=== PATIENT | male | born 1960 | race Caucasian/White ===

== ENCOUNTER → 2019-04-26 | Outpatient (CLI) | payer BC ==
[~2019-04-26] MED LIST: MOTRIN800 MG PO
[2019-04-26 07:53] LABS: HEMATOCRIT 44.7 % (42.0-52.0); HEMOGLOBIN 15.1 g/dl (14.0-18.0); MEAN CELL VOLUME 91.6 fl (80.0-94.0); MEAN CORPUSCULAR HGB 30.9 pg (27.0-31.0); MEAN CORPUSCULAR HGB CONC 33.8 g/dl (33.0-37.0); MEAN PLATELET VOLUME 9.1 fl (9.6-12.3); RED BLOOD COUNT 4.88 10*6/uL (4.50-5.90); RED CELL DISTRI WIDTH 12.9 % (0-14.5)
[2019-04-26 08:14] LABS: ALBUMIN 3.4 gm/dl (3.1-4.5); ALKALINE PHOSPHATASE 91 U/L (45-117); BUN 17 mg/dl (7-24); CHLORIDE 107 mmol/L (98-107); CHOLESTEROL 231 mg/dL (<200); CREATININE 0.96 mg/dL (0.70-1.30); HDL CHOLESTEROL 33 mg/dl (40-60); LDL CHOLESTEROL 118 mg/dL (9-159); POTASSIUM 4.1 mmol/L (3.5-5.1); SGOT/AST 20 IU/L (3-35); SGPT/ALT 44 U/L (12-78); SODIUM 142 mmol/L (136-145); TOTAL PROTEIN 7.3 gm/dL (6.4-8.2); TRIGLYCERIDES 398 mg/dl (<150); VLDL CHOLESTEROL 80 mg/dL (6-40)
== END | disposition home or self-care (01) ==
LOC: LAB 07:03
PROVIDERS: Family Medicine
DX: Z12.5 Encounter for screening for malignant neoplasm of prostate (principal); I25.10 Atherosclerotic heart disease of native coronary artery without angina pectoris; E55.9 Vitamin D deficiency, unspecified; E78.00 Pure hypercholesterolemia, unspecified; E74.00 Glycogen storage disease, unspecified

== ENCOUNTER → 2020-04-16 | Outpatient (CLI) | payer BC ==
[2020-04-16 07:29] LABS: MEAN CELL VOLUME 90.2 fl (80.0-94.0); MEAN CORPUSCULAR HGB 29.7 pg (27.0-31.0); MEAN CORPUSCULAR HGB CONC 32.9 g/dl (33.0-37.0); MEAN PLATELET VOLUME 8.9 fl (9.6-12.3); RED BLOOD COUNT 4.99 10*6/uL (4.50-5.90); RED CELL DISTRI WIDTH 13.1 % (0-14.5); WHITE BLOOD COUNT 7.3 10*3/uL (4.8-10.8)
[2020-04-16 07:49] LABS: CHLORIDE 106 mmol/L (98-107); SODIUM 139 mmol/L (136-145)
[2020-04-16 08:04] LABS: ALBUMIN 3.4 gm/dl (3.1-4.5); ALKALINE PHOSPHATASE 102 U/L (45-117); BUN 14 mg/dl (7-24); CHOLESTEROL 238 mg/dL (<200); CREATININE 0.95 mg/dL (0.70-1.30); HDL CHOLESTEROL 38 mg/dl (40-60); LDL CHOLESTEROL 146 mg/dL (9-159); SGOT/AST 21 IU/L (3-35); SGPT/ALT 45 U/L (12-78); TOTAL PROTEIN 7.3 gm/dL (6.4-8.2); TRIGLYCERIDES 271 mg/dl (<150); VLDL CHOLESTEROL 54 mg/dL (6-40)
[2020-04-18 19:07] LABS: TESTOSTERONE FREE, (DIRECT) 11.6 pg/mL (6.6-18.1)
== END | disposition home or self-care (01) ==
LOC: LAB 07:11
PROVIDERS: ATTEND Family Medicine
DX: Z12.5 Encounter for screening for malignant neoplasm of prostate (principal); E78.00 Pure hypercholesterolemia, unspecified; E74.9 Disorder of carbohydrate metabolism, unspecified; N52.9 Male erectile dysfunction, unspecified; R68.82 Decreased libido

== ENCOUNTER → 2021-01-28 | Outpatient (CLI) | payer BC ==
[2021-01-28 07:41] LABS: ALBUMIN 3.2 gm/dl (3.1-4.5); ALKALINE PHOSPHATASE 106 U/L (45-117); BUN 12 mg/dl (7-24); CHLORIDE 108 mmol/L (98-107); CHOLESTEROL 217 mg/dL (<200); CREATININE 0.81 mg/dL (0.70-1.30); POTASSIUM 3.8 mmol/L (3.5-5.1); SGOT/AST 20 IU/L (3-35); SGPT/ALT 45 U/L (12-78); SODIUM 140 mmol/L (136-145); TOTAL PROTEIN 7.1 gm/dL (6.4-8.2); TRIGLYCERIDES 298 mg/dl (<150)
[2021-01-28 07:42] LABS: LDL CHOLESTEROL 122 mg/dL (9-159)
== END | disposition home or self-care (01) ==
LOC: LAB 07:10
PROVIDERS: ATTEND Family Medicine
DX: E78.00 Pure hypercholesterolemia, unspecified (principal); E74.9 Disorder of carbohydrate metabolism, unspecified; F41.1 Generalized anxiety disorder

== ENCOUNTER → 2022-02-11 | Outpatient (CLI) | payer BC ==
[~2022-02-11] MED LIST changes: +ATORVASTATIN CA40 M1 PO; +BUSPAR15 MG PO; +DULOXETINE HCL60 MG PO; +ELIQUIS5 M1 PO
[2022-02-11 14:16] LABS: BILIRUBIN Negative (Negative); BLOOD Negative (Negative); CLARITY Clear (Clear); COLOR Yellow (Yellow); GLUCOSE Negative (Negative); KETONE Trace (Negative); LEUKO ESTERASE Negative (Negative); NITRITE Negative (Negative); UROBILINOGEN 0.2 E.U./dl (0.0-1.0)
[2022-02-11 14:24] LABS: BACTERIA 1+
[2022-02-11 14:25] LABS: HYALINE CAST 0-2
== END ==
LOC: LAB 13:38
PROVIDERS: ATTEND Internal Medicine
DX: M16.12 Unilateral primary osteoarthritis, left hip (principal); M17.12 Unilateral primary osteoarthritis, left knee; R82.998 Other abnormal findings in urine; Z13.0 Encounter for screening for diseases of the blood and blood-forming organs and certain disorders involving the immune mechanism; Z13.1 Encounter for screening for diabetes mellitus; Z13.21 Encounter for screening for nutritional disorder; Z13.220 Encounter for screening for lipoid disorders; Z13.228 Encounter for screening for other metabolic disorders; Z13.29 Encounter for screening for other suspected endocrine disorder; Z13.6 Encounter for screening for cardiovascular disorders; Z13.89 Encounter for screening for other disorder; Z13.9 Encounter for screening, unspecified

== ENCOUNTER → 2022-04-26 | Outpatient (CLI) | payer BC | END | disposition home or self-care (01) | LOC: US 03-24 14:00 | PROVIDERS: ATTEND Internal Medicine | DX: R60.0 Localized edema (principal); R20.0 Anesthesia of skin ==

== ENCOUNTER → 2022-05-16 | Outpatient (CLI) | payer BC ==
[2022-05-16 14:39] LABS: BASO # 0.1 10*3/uL (0.0-0.1); BASO % 1.2 % (0.0-1.0); EOS # 0.4 10*3/uL (0.0-0.4); HEMATOCRIT 47.4 % (42.0-52.0); LYMPH # 2.4 10*3/uL (1.3-4.4); LYMPH % 27.2 % (27.0-41.0); MEAN CELL VOLUME 88.1 fl (80.0-94.0); MEAN CORPUSCULAR HGB 30.1 pg (27.0-31.0); MEAN CORPUSCULAR HGB CONC 34.2 g/dl (33.0-37.0); MEAN PLATELET VOLUME 8.9 fl (9.6-12.3); MONO # 0.8 10*3/uL (0.1-1.0); MONO % 8.5 % (3.0-9.0); NEUT # 5.2 10*3/uL (2.3-7.9); NEUT % 58.4 % (47.0-73.0); PLATELET COUNT AUTOMATED 310 10*3/uL (130-400); RED BLOOD COUNT 5.38 10*6/uL (4.50-5.90); RED CELL DISTRI WIDTH 13.2 % (0-14.5); WHITE BLOOD COUNT 8.8 10*3/uL (4.8-10.8)
[2022-05-16 15:02] LABS: ALKALINE PHOSPHATASE 95 U/L (46-116); BUN 9 mg/dl (9-23); CHLORIDE 105 mmol/L (98-107); CHOLESTEROL 217 mg/dL (<200); LDL CHOLESTEROL 103 mg/dL (9-159); SGPT/ALT 33 U/L (10-49); T3 UPTAKE 17.6 % (22.4-36.7); THYROID STIM HORMONE (HS) 2.593 uIU/ml (0.550-4.780); THYROXINE (T4) TOTAL 8.4 ug/dl (4.5-10.9); TOTAL PROTEIN 7.4 gm/dL (6.0-8.0); TRIGLYCERIDES 374 mg/dl (<150)
== END | disposition home or self-care (01) ==
LOC: LAB 14:02
PROVIDERS: ATTEND Psychiatry & Neurology Neurology
DX: I63.413 Cerebral infarction due to embolism of bilateral middle cerebral arteries (principal)

== ENCOUNTER → 2023-02-24 | Outpatient (CLI) | payer BC | END | disposition home or self-care (01) | LOC: LAB 09:13 | PROVIDERS: ATTEND Internal Medicine | DX: E11.9 Type 2 diabetes mellitus without complications (principal) ==

== ENCOUNTER → 2023-06-22 | Outpatient (CLI) | payer BC ==
[~2023-06-22] MED LIST changes: +CBD GUMMIES PO; +CHONDROITIN SU100 G1 MC; +GOOD SENSE ACID20 MG PO; +HYDROXYZINE10 MG PO; +MULTI-VITAMIN1 EACH PO; +NEURONTIN300 MG PO; +PRISTIQ ER25 MG PO; +PROBIOTIC250 MG PO; +STOOL SOFTENER100 M3 PO; +VITAMIN C1000 M5 PO; +VITAMIN D250 MCG PO; +ZETIA10 MG PO; +ZYRTEC10 M2 PO; +[UNRECOGNIZED DRUG - OTHER] PO
[2023-06-22 13:49] LABS: MANUAL DIFF REFLEX YES
[2023-06-22 14:00] LABS: BASO # 0.1 10*3/uL (0.0-0.1); BASO % 0.8 % (0.0-1.0); EOS # 0.1 10*3/uL (0.0-0.4); EOS % 0.8 % (1.0-4.0); HEMATOCRIT 48.6 % (42.0-52.0); LYMPH # 2.5 10*3/uL (1.3-4.4); LYMPH % 23.8 % (27.0-41.0); MEAN CELL VOLUME 91.2 fl (80.0-94.0); MEAN CORPUSCULAR HGB CONC 32.9 g/dl (33.0-37.0); MEAN PLATELET VOLUME 8.9 fl (9.6-12.3); MONO # 0.7 10*3/uL (0.1-1.0); MONO % 6.8 % (3.0-9.0); NEUT # 7.1 10*3/uL (2.3-7.9); NEUT % 66.9 % (47.0-73.0); PLATELET COUNT AUTOMATED 310 10*3/uL (130-400); RED BLOOD COUNT 5.33 10*6/uL (4.50-5.90); RED CELL DISTRI WIDTH 13.6 % (0-14.5); WHITE BLOOD COUNT 10.6 10*3/uL (4.8-10.8)
[2023-06-22 14:11] LABS: ALKALINE PHOSPHATASE 116 U/L (46-116); BUN 9 mg/dl (9-23); CHLORIDE 103 mmol/L (98-107); CHOLESTEROL 218 mg/dL (<200); FREE T4 1.03 ng/dl (0.89-1.76); LDL CHOLESTEROL 105 mg/dL (9-159); POTASSIUM 3.8 mmol/L (3.4-5.1); SGPT/ALT 30 U/L (5-49); TOTAL PROTEIN 7.4 gm/dL (6.0-8.0); TRIGLYCERIDES 319 mg/dl (<150)
[2023-06-22 14:32] LABS: VITAMIN D, 25-HYDROXY 38.2 ng/mL (30-100)
== END | disposition home or self-care (01) ==
LOC: LAB 13:33
PROVIDERS: ATTEND Internal Medicine
DX: Z12.5 Encounter for screening for malignant neoplasm of prostate (principal); Z13.0 Encounter for screening for diseases of the blood and blood-forming organs and certain disorders involving the immune mechanism; Z13.1 Encounter for screening for diabetes mellitus; Z13.21 Encounter for screening for nutritional disorder; Z13.220 Encounter for screening for lipoid disorders; Z13.228 Encounter for screening for other metabolic disorders; Z13.29 Encounter for screening for other suspected endocrine disorder; Z13.6 Encounter for screening for cardiovascular disorders; Z13.89 Encounter for screening for other disorder; Z13.9 Encounter for screening, unspecified; I10 Essential (primary) hypertension; J44.9 Chronic obstructive pulmonary disease, unspecified; R60.0 Localized edema

== ENCOUNTER → 2023-07-14 | Outpatient (CLI) | payer BC | LOC: LAB 07-13 17:04 | PROVIDERS: ATTEND Internal Medicine | DX: E11.9 Type 2 diabetes mellitus without complications (principal) ==

== ENCOUNTER → 2024-06-13 | Outpatient (CLI) | payer BC | END | disposition home or self-care (01) | LOC: LAB 12:45 | PROVIDERS: ATTEND Internal Medicine | DX: R19.7 Diarrhea, unspecified (principal) ==

== ENCOUNTER 2024-07-10 18:55 | Emergency (ER) | payer MEDICARE, BC ==
[~2024-07-10] VITALS: Ht 177.8 cm; Wt 121.1 kg
[2024-07-10] MEDS ORDERED: Ondansetron Hydrochloride 4 MG/2 ML VIAL IV ONE ×2 (19:10→21:45)
[2024-07-10 19:36] LABS: BASO # 0.1 10*3/uL (0.0-0.1); BASO % 1.2 % (0.0-1.0); EOS # 0.3 10*3/uL (0.0-0.4); EOS % 3.3 % (1.0-4.0); HEMATOCRIT 44.8 % (42.0-52.0); MEAN CELL VOLUME 87.8 fl (80.0-94.0); MEAN CORPUSCULAR HGB 29.6 pg (27.0-31.0); MEAN CORPUSCULAR HGB CONC 33.7 g/dl (33.0-37.0); MEAN PLATELET VOLUME 8.8 fl (9.6-12.3); MONO # 0.8 10*3/uL (0.1-1.0); MONO % 8.6 % (3.0-9.0); NEUT # 6.2 10*3/uL (2.3-7.9); NEUT % 66.6 % (47.0-73.0); PLATELET COUNT AUTOMATED 289 10*3/uL (130-400); RED CELL DISTRI WIDTH 12.6 % (0-14.5); WHITE BLOOD COUNT 9.3 10*3/uL (4.8-10.8)
[2024-07-10 19:50] LABS: BUN 12 mg/dl (9-23); CHLORIDE 103 mmol/L (98-107); POTASSIUM 3.2 mmol/L (3.4-5.1)
[2024-07-10] MEDS ORDERED: Meclizine Hydrochloride 25 MG TAB PO ONE (20:30)
[2024-07-10] MEDS ORDERED: POTASSIUM CHLORIDE 20 MEQ TAB PO ONE (21:20)
[2024-07-10] MEDS ORDERED: MECLIZINE HCL25 M2 PO (21:27)
== END 2024-07-10 22:27 | disposition home or self-care (01) ==
LOC: ED 18:55
PROVIDERS: Internal Medicine
DX: H81.10 Benign paroxysmal vertigo, unspecified ear (principal); E87.6 Hypokalemia; E78.00 Pure hypercholesterolemia, unspecified; F32.A Depression, unspecified; Z79.899 Other long term (current) drug therapy; Z88.0 Allergy status to penicillin; Z91.030 Bee allergy status